=== PATIENT | male | born 1990 | race Caucasian/White ===

== ENCOUNTER 2016-12-18 11:06 | Inpatient (IN) | payer OTHER ==
--- NOTE | 2016-12-18 12:23 | HP ---
Admission [facility] - [facility] Allergies/Adverse Reactions: Allergies Allergy/AdvReac Type Severity Reaction Status Date / Time No Known Allergies Allergy Verified 12/18/16 11:50 - Ebola screening Have you traveled outside of the country in the last 21 days: No Have you had contact with anyone from an Ebola affected area: No Have you been sick,other than usual withdrawal symptoms: No Do you have a fever: No Patient History - Patient Medical History Hx Anemia: No Hx Asthma: No Hx Chronic Obstructive Pulmonary Disease (COPD): No Hx Cancer: No Hx Cardiac Disorders: No Hx Congestive Heart Failure: No Hx Hypertension: No Hx Hypercholesterolemia: No Hx Pacemaker: No HX Cerebrovascular Accident: No Hx Seizures: No Hx Diabetes: No Hx Gastrointestinal Disorders: No Hx Liver Disease: No Hx Genitourinary Disorders: No Hx Sexually Transmitted Disorders: No Hx Renal Disease (ESRD): No Hx Thyroid Disease: No Hx Human Immunodeficiency Virus (HIV): No (last 03/07) Hx Hepatitis C: No Hx Depression: No Hx Suicide Attempt: No Hx Schizophrenia: No - Patient Surgical History Past Surgical History: No Hx Neurologic Surgery: No Hx Cataract Extraction: No Hx Cardiac Surgery: No Hx Lung Surgery: No Hx Breast Surgery: No Hx Breast Biopsy: No Hx Abdominal Surgery: No Hx Appendectomy: No Hx Cholecystectomy: No Hx Genitourinary Surgery: No Hx Section: No Hx Orthopedic Surgery: No Anesthesia Reaction: No - PPD History Previous Implant?: Yes Documented Results: Negative w/proof Implanted On Prior [facility] Admission?: Yes Date: 08/19/16 Results: 0 mm - Smoking Cessation Smoking history: Current every day smoker Have you smoked in the past 12 months: Yes Aproximately how many cigarettes per day: 20 Hx Chewing Tobacco Use: No Initiated information on smoking cessation: Yes - Substances Abused Heroin Route: Injection Frequency: 1-3 times last 30 days Amount used: 5 bags Age of first use: 22 Date of Last Use: 12/16/16 Xanax Route: Oral Frequency: Daily Amount used: 10 mg. Age of first use: 24 Date of Last Use: 12/18/16 Alcohol-beer Route: Oral Frequency: Daily Amount used: 2 (24 oz.) Age of first use: 15 Date of Last Use: 12/18/16 Family Disease History - Family Disease History Family Disease History: Other: Brother (dsa) Admission Physical Exam [facility] - Vital Signs Vital Signs: Vital Signs - 24 hr 12/18/16 11:36 Temperature 97.4 F L Pulse Rate 79 Respiratory 20 Rate Blood Pressure 118/87 BHS Breath Alcohol Content Breath Alcohol Content: 0 Urine Drug Screen - Results Drug Screen Negative: No Urine Drug Screen Results: KHUSHI-Cocaine, BZO-Benzodiazepines, MTD-Methadone
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
[2016-12-18] MEDS ORDERED: MAGNESIUM CITRATE 300 ML BOTTLE PO PRN (13:32)
[2016-12-18] MEDS ORDERED: hydrOXYzine PAMOATE 50 MG CAPSULE (FP) PO PRN (13:32)
[2016-12-18] MEDS ORDERED: MAG HYDROX/AL HYDROX/SIMETH 30 ML UNIT-DOSE CUP PO PRN (13:32)
[2016-12-18] MEDS ORDERED: IBUPROFEN 400 MG TABLET (FP) PO PRN (13:32)
[2016-12-18] MEDS ORDERED: P-EPHED 60MG/TRIPROLIDI 2.5MG TABLET PO PRN (13:32)
[2016-12-18] MEDS ORDERED: LOPERAMIDE HCL 2 MG CAPSULE PO PRN (13:32)
[2016-12-18] MEDS ORDERED: guaiFENesin/D-METHORPHAN HB 10 ML UNIT-DOSE CUPS PO PRN (13:32)
[2016-12-18] MEDS ORDERED: ACETAMINOPHEN 325 MG TABLET (FP) PO PRN (13:32)
[2016-12-18] MEDS ORDERED: NICOTINE POLACRILEX 2 MG GUM BUC PRN (13:32)
[2016-12-18] MEDS ORDERED: MENTHOL/PHENOL 1 EACH UD MM PRN (13:32)
[2016-12-18] MEDS ORDERED: BACITRACIN 30 GM TUBE TOPICAL OINTMENT TP SCH (13:45)
[2016-12-18] MEDS ORDERED: diazePAM 5 MG TABLET PO ONE (14:30)
[2016-12-18] MEDS: diazePAM 5 MG TABLET PO SCH ×2 (14:39→22:19)
[2016-12-18] MEDS: NICOTINE 21 MG/24 HOURS TOPICAL PATCH TD SCH (14:41)
[2016-12-18] MEDS: AMOX TR/POT CLAV 875MG/125MG TABLETS (FP) PO SCH (17:40)
[2016-12-18 17:46] LABS: URINE APPEARANCE CLEAR; URINE BILIRUBIN NEGATIVE (NEGATIVE); URINE BLOOD NEGATIVE (NEGATIVE); URINE COLOR STRAW; URINE GLUCOSE (UA) NEGATIVE (NEGATIVE); URINE KETONE NEGATIVE (NEGATIVE); URINE LEUK ESTERASE NEGATIVE (NEGATIVE); URINE NITRITE NEGATIVE (NEGATIVE); URINE PROTEIN NEGATIVE (NEGATIVE); URINE UROBILINOGEN NEGATIVE E.U./dl (0.2-1.0)
--- NOTE | 2016-12-18 18:09 | EKG ---
Test Reason : Blood Pressure : / mmHG Vent. Rate : 075 BPM Atrial Rate : 075 BPM P-R Int : 122 ms QRS Dur : 094 ms QT Int : 386 ms P-R-T Axes : 040 064 049 degrees QTc Int : 431 ms NORMAL SINUS RHYTHM NORMAL ECG NO PREVIOUS ECGS AVAILABLE Confirmed by SUNNI CHILDERS MD ([id number]) on 12/18/2016 6:09:25 PM Referred By: Confirmed By:SUNNI CHILDERS MD
[2016-12-18] MEDS: diazePAM 5 MG TABLET PO PRN (18:46)
[2016-12-18] MEDS: BACITRACIN 0.9 GM PACKET TP SCH (22:19)
[2016-12-18] MEDS: diphenhydrAMINE HCL 50 MG CAPSULE PO PRN (22:19)
[2016-12-18] MEDS: THIAMINE HCL 100 MG TABLET (FP) PO SCH (22:19)
[2016-12-19] MEDS: diazePAM 5 MG TABLET PO PRN ×4 (00:20→17:03)
[2016-12-19] MEDS: diphenhydrAMINE HCL 50 MG CAPSULE PO PRN (00:21)
[2016-12-19] MEDS: diazePAM 5 MG TABLET PO SCH ×3 (05:25→22:23)
[2016-12-19] MEDS: METHADONE HCL 40 MG DISPERSABLE TABLET PO SCH (07:07)
[2016-12-19] MEDS: AMOX TR/POT CLAV 875MG/125MG TABLETS (FP) PO SCH ×2 (07:10→17:01)
[2016-12-19 10:07] LABS: MCH 30.4 pg (25.7-33.7); MCHC 33.8 g/dl (32.0-35.9); MEAN CELL VOLUME 89.9 fl (80-96); PLATELET COUNT 161 K/MM3 (134-434); RDW 13.1 % (11.9-15.9); WHITE BLOOD COUNT 6.4 K/mm3 (4.0-10.0)
[2016-12-19] MEDS: NICOTINE 21 MG/24 HOURS TOPICAL PATCH TD SCH (10:13)
[2016-12-19] MEDS: PRENATAL VITAMINS W/ FOLIC ACID TABLET (FP) PO SCH (10:13)
[2016-12-19] MEDS: BACITRACIN 0.9 GM PACKET TP SCH ×2 (10:13→22:23)
[2016-12-19] MEDS: AMMONIUM LACTATE 12% LOTION 225 GM BOTTLE TP SCH (10:14)
[2016-12-19 10:16] LABS: SGOT/AST 23 U/L (15-37); SGPT/ALT 22 U/L (12-78)
[2016-12-19] MEDS: MAGNESIUM HYDROX 2400MG/30ML ORAL SUSPENSION 30 ML CUP PO PRN (10:16)
[2016-12-19 10:21] LABS: ALBUMIN 4.6 g/dl (3.4-5.0); ALK PHOS 49 U/L (45-117); ANION GAP 5 (8-16); CALCIUM 9.9 mg/dL (8.5-10.1); CO2 35 mmol/L (21-32); GLUCOSE,RANDOM 82 mg/dL (74-106); TOT PROT 7.5 g/dl (6.4-8.2)
[2016-12-19 10:51] LABS: HIV 1 & 2 AB NEGATIVE; HIV 1 AGp24 NEGATIVE
--- NOTE | 2016-12-19 11:37 | PN ---
S CIWA - CIWA Score Nausea/Vomitin-No Nausea/No Vomiting Muscle Tremors: 3 Anxiety: 4-Mod. Anxious/Guarded Agitation: 4-Moderately Restless Paroxysmal Sweats: 3 Orientation: 0-Oriented Tacttile Disturbances: 0-None Auditory Disturbances: 0-None Visual Disturbances: 0-None Headache: 0-None Present CIWA-Ar Total Score: 14 BHS Progress Note (SOAP) Subjective: Sweating,interrupted sleep,restless,tremors,anxiety. Objective: 12/19/16 11:36 Vital Signs - 8 hr 12/19/16 12/19/16 06:06 09:45 Temperature 96.3 F L Pulse Rate 55 L 79 Respiratory 18 18 Rate Blood Pressure 102/66 133/76 Laboratory Tests 12/18/16 12/19/16 12/19/16 13:24 06:00 07:00 WBC 6.4 RBC 5.21 Hgb 15.8 Hct 46.9 MCV 89.9 MCHC 33.8 RDW 13.1 Plt Count 161 MPV 8.0 Sodium Potassium Chloride Carbon Dioxide Anion Gap BUN Creatinine Creat Clearance w eGFR Random Glucose Calcium Total Bilirubin AST ALT Alkaline Phosphatase Total Protein Albumin Urine Color Straw Urine Appearance Clear Urine pH 6.0 Ur Specific [place] 1.005 Urine Protein Negative Urine Glucose (UA) Negative Urine Ketones Negative Urine Blood Negative Urine Nitrite Negative Urine Bilirubin Negative Urine Urobilinogen Negative Ur Leukocyte Esterase Negative RPR Titer HIV 1&2 Antibody Screen Negative HIV P24 Antigen Negative 12/19/16 12/19/16 07:00 07:00 WBC RBC Hgb Hct MCV MCHC RDW Plt Count MPV Sodium 141 Potassium 3.8 Chloride 101 Carbon Dioxide 35 H Anion Gap 5 L BUN 10 D Creatinine 1.0 Creat Clearance w eGFR > 60 Random Glucose 82 Calcium 9.9 Total Bilirubin 1.0 D AST 23 D ALT 22 Alkaline Phosphatase 49 Total Protein 7.5 Albumin 4.6 Urine Color Urine Appearance Urine pH Ur Specific [place] Urine Protein Urine Glucose (UA) Urine Ketones Urine Blood Urine Nitrite Urine Bilirubin Urine Urobilinogen Ur Leukocyte Esterase RPR Titer Nonreactive HIV 1&2 Antibody Screen HIV P24 Antigen labs noted Assessment: 12/19/16 11:37 withdrawal sx. Plan: Continue detox
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
[2016-12-19] MEDS: ZOLPIDEM TARTRATE 10 MG TABLET (PARK CARE ONLY) PO PRN (22:23)
[2016-12-19] MEDS: THIAMINE HCL 100 MG TABLET (FP) PO SCH (22:23)
[2016-12-20] MEDS: diazePAM 5 MG TABLET PO PRN ×4 (00:40→17:08)
[2016-12-20] MEDS: METHADONE HCL 40 MG DISPERSABLE TABLET PO SCH (05:36)
[2016-12-20] MEDS: AMOX TR/POT CLAV 875MG/125MG TABLETS (FP) PO SCH ×2 (07:25→17:08)
--- NOTE | 2016-12-20 10:08 | PN ---
S CIWA - CIWA Score Nausea/Vomitin-No Nausea/No Vomiting Muscle Tremors: 3 Anxiety: 4-Mod. Anxious/Guarded Agitation: 4-Moderately Restless Paroxysmal Sweats: 3 Orientation: 0-Oriented Tacttile Disturbances: 0-None Auditory Disturbances: 0-None Visual Disturbances: 0-None Headache: 0-None Present CIWA-Ar Total Score: 14 BHS Progress Note (SOAP) Subjective: Anxiety,tremors,sweating,interrupted sleep,restless. Objective: 12/20/16 10:08 Vital Signs - 8 hr 12/20/16 12/20/16 12/20/16 03:27 06:07 09:47 Temperature 96.4 F L 96.7 F L Pulse Rate 62 83 Respiratory 18 16 20 Rate Blood Pressure 108/59 116/76 Laboratory Tests 12/18/16 12/18/16 12/19/16 07:00 13:24 06:00 WBC RBC Hgb Hct MCV MCHC RDW Plt Count MPV Sodium Potassium Chloride Carbon Dioxide Anion Gap BUN Creatinine Creat Clearance w eGFR Random Glucose Calcium Total Bilirubin AST ALT Alkaline Phosphatase Total Protein Albumin Urine Color Straw Urine Appearance Clear Urine pH 6.0 Ur Specific [place] 1.005 Urine Protein Negative Urine Glucose (UA) Negative Urine Ketones Negative Urine Blood Negative Urine Nitrite Negative Urine Bilirubin Negative Urine Urobilinogen Negative Ur Leukocyte Esterase Negative RPR Titer Hepatitis C Antibody 0.1 HIV 1&2 Antibody Screen Negative HIV P24 Antigen Negative 12/19/16 12/19/16 12/19/16 07:00 07:00 07:00 WBC 6.4 RBC 5.21 Hgb 15.8 Hct 46.9 MCV 89.9 MCHC 33.8 RDW 13.1 Plt Count 161 MPV 8.0 Sodium 141 Potassium 3.8 Chloride 101 Carbon Dioxide 35 H Anion Gap 5 L BUN 10 D Creatinine 1.0 Creat Clearance w eGFR > 60 Random Glucose 82 Calcium 9.9 Total Bilirubin 1.0 D AST 23 D ALT 22 Alkaline Phosphatase 49 Total Protein 7.5 Albumin 4.6 Urine Color Urine Appearance Urine pH Ur Specific [place] Urine Protein Urine Glucose (UA) Urine Ketones Urine Blood Urine Nitrite Urine Bilirubin Urine Urobilinogen Ur Leukocyte Esterase RPR Titer Nonreactive Hepatitis C Antibody HIV 1&2 Antibody Screen HIV P24 Antigen labs noted Assessment: 12/20/16 10:08 Withdrawal sx. Plan: Continue detox
[2016-12-20] MEDS: PRENATAL VITAMINS W/ FOLIC ACID TABLET (FP) PO SCH (10:14)
[2016-12-20] MEDS: BACITRACIN 0.9 GM PACKET TP SCH ×2 (10:14→22:18)
[2016-12-20] MEDS: diazePAM 5 MG TABLET PO SCH ×2 (10:14→22:19)
[2016-12-20] MEDS: AMMONIUM LACTATE 12% LOTION 225 GM BOTTLE TP SCH (10:15)
[2016-12-20] MEDS: NICOTINE 21 MG/24 HOURS TOPICAL PATCH TD SCH (10:16)
[2016-12-20] MEDS: MAGNESIUM HYDROX 2400MG/30ML ORAL SUSPENSION 30 ML CUP PO PRN (10:16)
[2016-12-20] MEDS: THIAMINE HCL 100 MG TABLET (FP) PO SCH (22:18)
[2016-12-20] MEDS: ZOLPIDEM TARTRATE 10 MG TABLET (PARK CARE ONLY) PO PRN (22:18)
[2016-12-21] MEDS: diazePAM 5 MG TABLET PO PRN ×2 (00:31→05:38)
[2016-12-21] MEDS: METHADONE HCL 40 MG DISPERSABLE TABLET PO SCH (05:37)
[2016-12-21] MEDS: AMOX TR/POT CLAV 875MG/125MG TABLETS (FP) PO SCH (07:01)
[2016-12-21 09:19] VITALS: BP 124/72; PULSE 87; TEMP 97.5
--- NOTE | 2016-12-21 14:25 | DS ---
[facility] Detox Discharge Summary Admission Date: 12/18/16 Discharge Date: 12/21/16 - History Present History: Cocaine Dependence, Sedative Dependence, MMTP Pertinent Past History: infected laceration behind lt. ear - Physical Exam Results Vital Signs: Vital Signs Temperature 97.5 F L 12/21/16 09:18 Pulse Rate 87 12/21/16 09:18 Respiratory Rate 18 12/21/16 09:18 Blood Pressure 124/72 12/21/16 09:18 O2 Sat by Pulse Oximetry (%) Pertinent Admission Physical Exam Findings: Withdrawal sx. Laboratory Tests 12/18/16 12/18/16 12/19/16 07:00 13:24 06:00 WBC RBC Hgb Hct MCV MCHC RDW Plt Count MPV Sodium Potassium Chloride Carbon Dioxide Anion Gap BUN Creatinine Creat Clearance w eGFR Random Glucose Calcium Total Bilirubin AST ALT Alkaline Phosphatase Total Protein Albumin Urine Color Straw Urine Appearance Clear Urine pH 6.0 Ur Specific [place] 1.005 Urine Protein Negative Urine Glucose (UA) Negative Urine Ketones Negative Urine Blood Negative Urine Nitrite Negative Urine Bilirubin Negative Urine Urobilinogen Negative Ur Leukocyte Esterase Negative RPR Titer Hepatitis C Antibody 0.1 HIV 1&2 Antibody Screen Negative HIV P24 Antigen Negative 12/19/16 12/19/16 12/19/16 07:00 07:00 07:00 WBC 6.4 RBC 5.21 Hgb 15.8 Hct 46.9 MCV 89.9 MCHC 33.8 RDW 13.1 Plt Count 161 MPV 8.0 Sodium 141 Potassium 3.8 Chloride 101 Carbon Dioxide 35 H Anion Gap 5 L BUN 10 D Creatinine 1.0 Creat Clearance w eGFR > 60 Random Glucose 82 Calcium 9.9 Total Bilirubin 1.0 D AST 23 D ALT 22 Alkaline Phosphatase 49 Total Protein 7.5 Albumin 4.6 Urine Color Urine Appearance Urine pH Ur Specific [place] Urine Protein Urine Glucose (UA) Urine Ketones Urine Blood Urine Nitrite Urine Bilirubin Urine Urobilinogen Ur Leukocyte Esterase RPR Titer Nonreactive Hepatitis C Antibody HIV 1&2 Antibody Screen HIV P24 Antigen labs noted - Medication Discharge Medications: Ambulatory Orders Amox-Tr/K Cl [Augmentin 875-125mg Tablet -] 1 tab PO BID@0800,1730 #14 tablet - Diagnosis (1) Cocaine dependence Status: Acute Qualifiers: Substance use status: uncomplicated Qualified Code(s): F14.20 - Cocaine dependence, uncomplicated (2) Drug-induced mood disorder Status: Acute (3) Infection of ear, external, left Status: Acute (4) Nicotine dependence Status: Acute Qualifiers: Nicotine product type: cigarettes Substance use status: uncomplicated Qualified Code(s): F17.210 - Nicotine dependence, cigarettes, uncomplicated (5) Opioid dependence on agonist therapy Status: Acute (6) Sedative, hypnotic or anxiolytic dependence with withdrawal, uncomplicated Status: Acute - AMA Did Patient Leave Against Medical Advice: Yes
[2016-12-22] MEDS ORDERED: diazePAM 5 MG TABLET PO SCH (10:00)
== END 2016-12-21 09:37 | disposition left against medical advice (07) | DRG 770 ==
LOC: YASAS 11:06 → Y3N 12:22
PROVIDERS: ADMIT Internal Medicine; ATTEND Internal Medicine
PROC: HZ2ZZZZ Detoxification Services for Substance Abuse Treatment (ICD-10-PCS; principal; 2016-12-21)
DX: F11.20 Opioid dependence, uncomplicated (principal); F13.230 Sedative, hypnotic or anxiolytic dependence with withdrawal, uncomplicated; F14.20 Cocaine dependence, uncomplicated; F17.210 Nicotine dependence, cigarettes, uncomplicated; F10.10 Alcohol abuse, uncomplicated; F19.24 Other psychoactive substance dependence with psychoactive substance-induced mood disorder; G47.00 Insomnia, unspecified; H60.8X2 Other otitis externa, left ear
CPT/HCPCS: 36415; 80053; 81003; 85027; 86593; 87389; 93005; 93010